=== PATIENT | male | born 1990 | race Caucasian/White ===

== ENCOUNTER 2017-11-09 11:16 | Emergency (ER) | payer MEDICAID ==
[~2017-11-09] VITALS: Ht 177.8 cm; Wt 69.5 kg
[2017-11-09 11:19] VITALS: BP 113/70
== END 2017-11-09 13:58 | disposition home or self-care (01) ==
LOC: ED 13:52
DX: K92.0 Hematemesis (principal); Z53.21 Procedure and treatment not carried out due to patient leaving prior to being seen by health care provider